=== PATIENT | male | born 1955 ===

== ENCOUNTER 2019-04-29 07:02 | Day surgery (SDC) | payer BC ==
[~2019-04-29] VITALS: Ht 170.2 cm; Wt 106.0 kg
[~2019-04-29 07:02] MED LIST: HYDCHL25 PO; Pravachol40 MG PO; Prinivil10 MG PO
--- NOTE | 2019-04-29 07:14 | NUR ---
History, Chart, Medications and Allergies reviewed before start of procedure. Patient confirms NPO status and agrees with scheduled surgery. Reports taking all of colon prep with clear results. Patient States Post-Procedure ride home has been arranged with his .
--- NOTE | 2019-04-29 08:17 | NUR ---
04/29/19 0816 Michelle Short History, Chart, Medications and Allergies reviewed before start of procedure.PATIENT DETERMINED TO BE ASA APPROPRIATE FOR PROPOFOL SEDATION PRIOR TO START OF PROCEDURE BY .MONITOR INTACT WITH CONTINUOUS PULSE OXIMETRY AND INTERMITTENT BP.3-LEAD EKG REVIEWED WITH PHYSICIAN PRIOR TO START OF PROCEDURE.O2 VIA N/C INTACT THROUGHOUT SEDATION/PROCEDURE.
--- NOTE | 2019-04-29 09:04 | NUR ---
Patient up to Ambulate independently. Gait steady. Discharge instructions reviewed with patient. Patient verbalizes understanding. Copy given to patient to take home.DR. FLORES TO BEDSIDE TO SPEAK WITH PT. Discharged via wheelchair to private car for ride home.
== END 2019-04-29 09:10 | disposition home or self-care (01) ==
LOC: ORSCMMR 07:02 → ORD 08:00 → ORSCMMR 09:10
PROVIDERS: Internal Medicine Gastroenterology
PROC: 0DBN8ZX Excision of Sigmoid Colon, Via Natural or Artificial Opening Endoscopic, Diagnostic (ICD-10-PCS; principal; 2019-04-29 08:00)
DX: Z12.11 Encounter for screening for malignant neoplasm of colon (principal); K63.5 Polyp of colon; I10 Essential (primary) hypertension; E78.00 Pure hypercholesterolemia, unspecified; Z79.899 Other long term (current) drug therapy
CPT/HCPCS: 88305; J2704; J7120

== ENCOUNTER → 2025-07-16 | Outpatient (CLI) | payer OTHER ==
[2025-07-17 13:01] LABS: Stool Occult Bld Immuno 1 Negative (NEGATIVE)
== END ==
LOC: LAB 19:34 → LAB SHORT 19:34
PROVIDERS: Internal Medicine
DX: Z12.11 Encounter for screening for malignant neoplasm of colon (principal)
CPT/HCPCS: G0328